=== PATIENT | male | born 1985 | race Caucasian/White ===

== ENCOUNTER 2021-03-08 13:59 | Emergency (ER) | payer OTHER, SELFPAY ==
[2021-03-08 14:10] VITALS: BP 136/79; PULSE 68; RESP 16; TEMP 36.3; O2SAT 100; BMI 23.7
[2021-03-08] MEDS: DOXYCYCLINE HYCLATE 100 MG TABLET PO (14:29)
--- NOTE | 2021-03-08 18:57 | ED_ITS ---
HPI - Extremity Injury (Lower) General Chief Complaint: Extremity Injury, Lower Stated Complaint: cut on leg that is red and swollen Time Seen by Provider: 03/08/21 14:06 Source: patient Mode of arrival: Ambulatory Limitations: no limitations History of Present Illness HPI Narrative: 35-year-old male nonsmoker with noncontributory medical history presents with a chief complaint of a few days of increasing pain, redness and warmth on the backside of his right calf. Two days ago he was walking in his yd when he scraped the backside of his calf on a stiff in a [place] in the [place] causing a superficial linear abrasion. He really did not think much of it denies any foreign body. He states over the course of the next day or so he developed increasing pain, redness and minimal swelling. There is no ongoing bleeding or drainage. There is no radiation of pain proximally and no red streaking. He has no systemic findings such as fever, chills nor nausea or vomiting. MD complaint: leg injury Onset (ago): hour(s) Type of Injury: other Place: street/outdoors Severity: mild Relieving factors: nothing Exacerbating factors: weight bearing Context: other Associated symptoms: ambulatory Other symptoms: none Related Data Previous Rx's Medication Instructions Recorded doxycycline hyclate 100 mg PO BID #20 tab 03/08/21 Allergies Allergy/AdvReac Type Severity Reaction Status Date / Time No Known Drug Allergies Allergy Verified 03/08/21 14:13 Review of Systems Constitutional Constitutional: Denies chills, Denies fatigue, Denies fever(s), Denies frequent falls, Denies lethargy and Denies weakness Eyes Eyes: Denies change in vision, Denies eye discharge, Denies irritation and Denies loss of vision ENT Ears, Nose, Mouth, and Throat: Denies change in voice, Denies dizziness, Denies neck pain, Denies sore throat and Denies throat swelling Cardiovascular Cardiovascular: Denies chest pain, Denies irregular heart rhythm, Denies lightheadedness, Denies palpitations, Denies dyspnea, Denies dyspnea on exertion and Denies orthopnea Respiratory Respiratory: Denies cough, Denies dyspnea, Denies dyspnea on exertion and Denies wheezing Gastrointestinal Gastrointestinal: Denies abdominal pain, Denies change in bowel habits, Denies diarrhea, Denies nausea and Denies vomiting Musculoskeletal Musculoskeletal: Denies neck pain and Denies numbness Integumentary/Breasts Skin/Breast: Denies pruritus, Reports erythema, Denies rash, Reports skin pain, Reports skin swelling and Reports wounds Neurologic Neurologic: Denies behavioral changes, Denies confusion, Denies dizziness, Denies frequent falls, Denies loss of vision, Denies numbness and Denies weakness Psychiatric Psychiatric: Denies anxiety, Denies behavioral changes, Denies confusion, Denies depression, Denies homicidal ideation and Denies suicidal ideation Endocrine Endocrine: Denies fatigue, Denies flushing and Denies palpitations Hematologic/Lymphatic Hematologic/Lymphatic: Denies easy bruising Allergic/Immunologic Allergic/Immunologic: Denies urticaria, Denies throat swelling and Denies wheezing Patient History Social History Smoking Status: Never smoker Smoking Status: Never smoker alcohol intake frequency: 0-2 drinks per day Substance Use Type: does not use Exam Narrative Exam Narrative: GEN: AOx3 and in mild distress EYES: Pupils are equal, round, and reactive to light and accommodation. Extraoccular muscles are intact bilaterally. There is no subconjunctival hemorrhage or exudate. CHEST: Lungs are clear to auscultation bilaterally and free of wheezes, rales, or rhonchi. Heart rate is regular rhythm, there are no murmurs, clicks, rubs, or gallops. There is no chest wall tenderness. ABD: Abdomen is soft and nontender. There is no guarding or rebound. Bowel sounds are normal in all 4 quadrants. There is no mass or organomegaly. EXT: Full painless ROM of all extremities with no loss of sensation or strength. SKIN: 6 cm superficial linear abrasion on posterior right calf, no bleeding, drainage or dehiscence. There is surrounding erythema without induration or fluctuance. No lymphangitis. Initial Vital Signs Initial Vital Signs: Vital Signs Temperature 97.4 F L 03/08/21 14:10 Pulse Rate 68 03/08/21 14:10 Respiratory Rate 16 03/08/21 14:10 Blood Pressure 136/79 03/08/21 14:10 Pulse Oximetry 100 03/08/21 14:10 Course Orders Ordered: Discontinued Medications Doxycycline Hyclate (Doxycycline Hyclate 100 Mg Tablet) 100 mg PO NOW ONE Stop: 03/08/21 14:25 Last Admin: 03/08/21 14:29 Dose: 100 mg Documented by: BSMEN Vital Signs Vital signs: Vital Signs - 8 hr 03/08/21 14:10 Temperature 97.4 F L Pulse Rate 68 Respiratory Rate 16 Blood Pressure 136/79 Pulse Oximetry 100 MDM - Extremity Injury (Lower) MDM Narrative Medical decision making narrative: Patient is healthy, not septic and not immune compromised. There is no suggestion of abscess or deep space infection. We did discuss the potential utility of labs or imaging and agree that they are unlikely to change the disposition or plan. He has been given extensive return precautions and has had questions answered to his apparent satisfaction Discharge Plan Departure Patient Disposition: Home Clinical Impression: Cellulitis of leg, right Instructions: DI for Cellulitis -- Adult Activity Restrictions/Additional Instructions: *You have been diagnosed with [right lower extremity cellulitis without evidence of abscess *What to do: *Please continue to take your regular medications as directed. [x ] New medication prescriptions sent to your pharmacy: [[place] [facility]] [ ] New medication written as a paper prescription [ ] No new medications given *Please follow up with your primary care provider in 2-3 days, call for an appointment. Let them know you were seen in the Emergency Department and that we ask that you be seen in follow up. We will electronically transmit a record of today's note if your PCP is in our system *If you do not have a primary care provider please contact the [facility] Resource line at [phone]. They will ask some questions about your medical history and help get you set up with a doctor in the community. *Return to Emergency Department if you should have any new, worsening or concerning symptoms, such as [fever greater than 101 F, shaking chills, worsening pain, persistent vomiting, drainage, red streaks, or other bothersome symptoms] Prescriptions: New doxycycline hyclate 100 mg tablet 100 mg PO BID Qty: 20 RF: 0 Referrals: [facility] [Outside]
== END 2021-03-08 14:30 | disposition home or self-care (01) ==
PROVIDERS: Emergency Provider Emergency Medicine
DX: L03.115 Cellulitis of right lower limb (principal)
CPT/HCPCS: 99283